=== PATIENT | female | born 1940 | race Two or more races ===

== ENCOUNTER 2016-11-22 12:09 | Inpatient (IN) | payer OTHER, BC ==
[~2016-11-22] VITALS: Ht 152.4 cm; Wt 96.2 kg
[2016-11-22] MEDS ORDERED: METOPROLOL TART25 MG PO (13:52)
[2016-11-22] MEDS ORDERED: ATORVASTATIN CA40 MG PO ×2 (13:52→19:13)
[2016-11-22] MEDS ORDERED: HYDROCHLOROTH12.5 M3 PO (13:53)
[2016-11-22] MEDS ORDERED: REPAGLINIDE2 MG PO (13:53)
[2016-11-22] MEDS ORDERED: JANUMET XR 50-1 EACH PO (13:59)
[2016-11-22] MEDS ORDERED: TERBINAFINE HC250 MG PO (13:59)
[2016-11-22] MEDS ORDERED: ELIQUIS5 MG PO (13:59)
[2016-11-22] MEDS ORDERED: JARDIANCE25 MG PO (14:00)
[2016-11-22] MEDS ORDERED: GABAPENTIN300 MG PO (14:00)
[2016-11-22 14:46] LABS: HEMATOCRIT 45.5 % (36.0-46.0); MCH 26.5 PG (29.0-34.0); MCHC 31.4 G/DL (30.0-36.0); MCV 84.3 FL (83-99); RBC DIS.WIDTH-CV 16.5 % (11.8-14.6); RBC DIS.WIDTH-SD 50.8 % (39-53); WHITE BLOOD COUNT 8.2 K/uL (4.1-10.2)
[2016-11-22 14:57] LABS: CHLORIDE 93 mEq/L (99-109); POTASSIUM 4.9 mEq/L (3.7-5.4); SODIUM 134 mEq/L (136-147)
[2016-11-22 15:00] LABS: ANION GAP 13 MEQ/L (2-14)
[2016-11-22 15:01] LABS: TOTAL BILIRUBIN 0.7 mg/dL (0.0-1.0)
[2016-11-22 15:03] LABS: ALKALINE PHOSPHATASE 88 IU/L (3-129); GFR ESTIMATE (CALCULATED) 29 mL/min/
[2016-11-22 15:04] LABS: UREA NITROGEN (BUN) 27 mg/dL (9-23)
[2016-11-22 15:07] LABS: TROP-I INTERPRETATION NEGATIVE; TROPONIN-I 0.02 ng/mL (0.0-0.30)
[2016-11-22 15:07] LABS: ADD MIUA? NO; BILIRUBIN NEGATIVE; BLOOD NEGATIVE; COLOR STRAW ((YELLOW)); GLUCOSE (STRIP) >=500; KETONES NEGATIVE; LEUKOCYTES NEGATIVE; NITRITE NEGATIVE; PROTEIN (STRIP) NEGATIVE; SPECIFIC GRAVITY 1.025 (1.000-1.030); UCUL ADDED? NO; UROBILINOGEN 0.2 MG/DL (0.2-1.0)
[2016-11-22 15:13] LABS: GLUCOSE 613 mg/dL (70-99)
[2016-11-22 16:06] LABS: ABS NEUTROPHIL COUNT 6.3; ANISOCYTOSIS 1+; ATYPICAL LYMPHOCYTE 0.9 %; BAND NEUTROPHILS 17.4 % (0-8.0); EOSINOPHIL ABS CT 0; INSTRUMENT ABS NEUTROPHIL CT 6.2 K/uL; LYMPHOCYTES 14.8 % (15.0-45.0); MACROCYTES 1+; MICROCYTOSIS 1+; PLAT.SUFFICIENCY ADEQUATE; PLATELET CLUMPS PRESENT - PLATELET COUNT APPEARS ADQ.; PLATELET COUNT UNABLE TO REPORT K/uL (156-360); SEG.NEUTROPHILS 59.1 % (46.0-76.0)
[2016-11-22 17:32] LABS: POINT-OF-CARE METER ID UU13113702
[2016-11-22 19:05] LABS: POINT-OF-CARE METER ID UU13113702
[2016-11-22] MEDS ORDERED: ALTACE10 MG PO (19:20)
[2016-11-22 19:41] LABS: URIC ACID 6.9 mg/dL (3.1-9.2)
[2016-11-22 20:18] LABS: Estimated Average Glucose 286 mg/dL (70-123); HEMOGLOBIN A1c (GLYCOHEMOGLOB) 11.6 % HGB (Below 5.7)
[2016-11-22 21:32] VITALS: BP 132/71
[2016-11-23] VITALS (7 sets, daily range): BP systolic 94–182; BP diastolic 50–88
[2016-11-23 05:19] LABS: MCH 26.3 PG (29.0-34.0); MCV 84.9 FL (83-99); MEAN PLAT.VOLUME 10.6 uM^3 (9.5-12.4); PLATELET COUNT 232 K/uL (156-360); RBC DIS.WIDTH-CV 16.3 % (11.8-14.6); RBC DIS.WIDTH-SD 50.8 % (39-53); RED BLOOD COUNT 4.71 M/uL (3.80-5.20); WHITE BLOOD COUNT 7.1 K/uL (4.1-10.2)
[2016-11-23 05:51] LABS: ANION GAP 8 MEQ/L (2-14); CHLORIDE 102 MEQ/L (99-109); GFR ESTIMATE (CALCULATED) 52 mL/min/; SAMPLE HEMOLYSIS CHECK 0; SAMPLE ICTERIC CHECK 0; SAMPLE LIPEMIA CHECK 0; SODIUM 140 MEQ/L (136-147); UREA NITROGEN (BUN) 22 mg/dL (9-23)
[2016-11-23 06:10] LABS: GLUCOSE 192 mg/dL (70-99)
[2016-11-23 12:25] LABS: POINT-OF-CARE METER ID UU14174225
[2016-11-23 12:43] LABS: TROP-I INTERPRETATION NEGATIVE; TROPONIN-I 0.02 ng/mL (0.0-0.30)
[2016-11-23 17:05] LABS: POINT-OF-CARE METER ID UU14174225
[2016-11-23 20:27] LABS: POINT-OF-CARE METER ID UU14174225
[2016-11-24] VITALS (22 sets, daily range): BP systolic 74–183; BP diastolic 37–81
[2016-11-24 08:50] LABS: BASE EXCESS -14.1 mEq/L (-3 to +3); BICARBONATE 13.4 mEq/L (22-26); CARBOXY HGB 2.3 % (0-5); COMMENTS - BLOOD GASES +C; DEVICE NC; O2 FLOW 3 L/MIN; PCO2 36 mm Hg (35-45); PO2 80 mm Hg (80-100); SITE RR +A
[2016-11-24 08:51] LABS: TOTAL RESP RATE 16 resp/min; pH 7.18 (7.35-7.45)
[2016-11-24 09:12] LABS: HEMATOCRIT 45.8 % (36.0-46.0); MCH 26.4 PG (29.0-34.0); MCHC 29.7 G/DL (30.0-36.0); MCV 88.8 FL (83-99); NRBC (%) 0.2 /100 WBC (0-0); RBC DIS.WIDTH-CV 17.4 % (11.8-14.6); RBC DIS.WIDTH-SD 57.4 % (39-53); RED BLOOD COUNT 5.16 M/uL (3.80-5.20)
[2016-11-24 09:21] LABS: SODIUM 142 mEq/L (136-147)
[2016-11-24 09:22] LABS: WHITE BLOOD COUNT 10.9 K/uL (4.1-10.2)
[2016-11-24 09:23] LABS: CHLORIDE 110 mEq/L (99-109); POTASSIUM 6.1 mEq/L (3.7-5.4)
[2016-11-24 09:24] LABS: ANION GAP 21 MEQ/L (2-14)
[2016-11-24 09:26] LABS: GLUCOSE 76 mg/dL (70-99)
[2016-11-24 09:27] LABS: ALKALINE PHOSPHATASE 267 IU/L (3-129); GFR ESTIMATE (CALCULATED) 27 mL/min/
[2016-11-24 09:28] LABS: UREA NITROGEN (BUN) 27 mg/dL (9-23)
[2016-11-24 09:29] LABS: TROP-I INTERPRETATION NEGATIVE; TROPONIN-I 0.17 ng/mL (0.0-0.30)
[2016-11-24 11:16] LABS: MEAN PLAT.VOLUME 11.4 uM^3 (9.5-12.4)
[2016-11-24 11:34] LABS: PLAT.SUFFICIENCY DECREASED; PLATELET CLUMPS PRESENT - PLATELET COUNT APPEARS ADQ.
[2016-11-24 11:56] LABS: METH RESISTANT S AUREUS PCR NEGATIVE (NEGATIVE)
[2016-11-24 12:31] LABS: PROBE CHECK PASS; SPECIMEN PROCESSING CONTROL PASS
[2016-11-24 13:21] LABS: CHLORIDE 110 mEq/L (99-109); SODIUM 142 mEq/L (136-147)
[2016-11-24 13:23] LABS: HEMATOCRIT 44.7 % (36.0-46.0); MCH 26.9 PG (29.0-34.0); MCHC 30.2 G/DL (30.0-36.0); RBC DIS.WIDTH-CV 17.5 % (11.8-14.6); RBC DIS.WIDTH-SD 57.9 % (39-53); RED BLOOD COUNT 5.02 M/uL (3.80-5.20); WHITE BLOOD COUNT 12.2 K/uL (4.1-10.2)
[2016-11-24 13:25] LABS: ANION GAP 18 MEQ/L (2-14); PROTHROMBIN TIME 20.8 (9.2-11.2); PTT 37.4 (25-32); TOTAL BILIRUBIN 1.6 mg/dL (0.0-1.0)
[2016-11-24 13:27] LABS: ALKALINE PHOSPHATASE 245 IU/L (3-129); GFR ESTIMATE (CALCULATED) 29 mL/min/
[2016-11-24 13:28] LABS: UREA NITROGEN (BUN) 28 mg/dL (9-23)
[2016-11-24 13:29] LABS: DIRECT BILIRUBIN 1.2 mg/dL (0.0-0.3)
[2016-11-24 13:47] LABS: GLUCOSE 193 mg/dL (70-99); POTASSIUM 4.3 mEq/L (3.7-5.4)
[2016-11-24 15:47] LABS: ABS NEUTROPHIL COUNT 9.6; ANISOCYTOSIS 1+; BAND NEUTROPHILS 31.3 % (0-8.0); EOSINOPHIL ABS CT 0; HEMATOLOGY COMMENT 1 SN; INSTRUMENT ABS NEUTROPHIL CT 10.1 K/uL; LYMPHOCYTES 4.3 % (15.0-45.0); MEAN PLAT.VOLUME 11.3 uM^3 (9.5-12.4); METAMYELOCYTES 2.6 %; MYELOCYTES 3.5 %; PLAT.SUFFICIENCY DECREASED; POIKILOCYTOSIS 3+; TOXIC GRANULATION 1+
[2016-11-24 15:57] LABS: PLATELET COUNT 89 K/uL (156-360)
[2016-11-24 17:44] LABS: ADD MIUA? YES; BILIRUBIN NEGATIVE; BLOOD MODERATE; COLOR AMBER ((YELLOW)); GLUCOSE (STRIP) >=500; KETONES NEGATIVE; LEUKOCYTES NEGATIVE; NITRITE NEGATIVE; PROTEIN (STRIP) 100; SPECIFIC GRAVITY 1.018 (1.000-1.030)
[2016-11-24 18:30] LABS: BACTERIA 1+ /HPF; EPITHELIAL CELLS RARE /HPF; HYALINE CASTS 0-5 /LPF; MUCUS TRACE /LPF; UCUL ADDED? NO
[2016-11-24 18:49] LABS: INTER. NORMALIZED RATIO 2.1; PROTHROMBIN TIME 21.4 (9.2-11.2); PTT 35.9 (25-32)
[2016-11-24 18:57] LABS: TROP-I INTERPRETATION POSITIVE; TROPONIN-I 1.09 ng/mL (0.0-0.30)
[2016-11-24 19:23] LABS: GLOBULINS 2.8 G/DL (2.3-3.5)
[2016-11-25] VITALS (36 sets, daily range): BP systolic 77–178; BP diastolic 40–102
[2016-11-25 00:04] LABS: POINT-OF-CARE METER ID UU13113803
[2016-11-25 06:03] LABS: POINT-OF-CARE METER ID UU13113803
[2016-11-25 07:11] LABS: HEMATOCRIT 38.5 % (36.0-46.0); MCH 27.3 PG (29.0-34.0); MCHC 31.2 G/DL (30.0-36.0); MCV 87.7 FL (83-99); NRBC (%) 0.4 /100 WBC (0-0); RBC DIS.WIDTH-CV 17.2 % (11.8-14.6); RBC DIS.WIDTH-SD 55.9 % (39-53); RED BLOOD COUNT 4.39 M/uL (3.80-5.20)
[2016-11-25 07:12] LABS: WHITE BLOOD COUNT 6.7 K/uL (4.1-10.2)
[2016-11-25 07:37] LABS: CHLORIDE 109 MEQ/L (99-109); GFR ESTIMATE (CALCULATED) 21 mL/min/; GLUCOSE 258 mg/dL (70-99); SODIUM 140 MEQ/L (136-147); TOTAL BILIRUBIN 0.9 MG/DL (0.0-1.0); UREA NITROGEN (BUN) 40 mg/dL (9-23)
[2016-11-25 07:38] LABS: ALKALINE PHOSPHATASE 242 IU/L (3-129); DIRECT BILIRUBIN 0.4 mg/dL (0.0-0.3)
[2016-11-25 07:42] LABS: ANION GAP 15 MEQ/L (2-14); SAMPLE HEMOLYSIS CHECK 0; SAMPLE ICTERIC CHECK 0; SAMPLE LIPEMIA CHECK 0
[2016-11-25 07:45] LABS: ABS NEUTROPHIL COUNT 5.3; ANISOCYTOSIS 1+; ATYPICAL LYMPHOCYTE 0.9 %; BAND NEUTROPHILS 39.3 % (0-8.0); BASOPHILS 0.9 %; BURR CELLS 2+; EOSINOPHIL ABS CT 0; IMM.PLATELET FRACTION 11.1 (1-7); INSTRUMENT ABS NEUTROPHIL CT 5.6 K/uL; LYMPHOCYTES 11.6 % (15.0-45.0); MACROCYTES 1+; METAMYELOCYTES 1.8 %; NUCLEATED RBC'S 0.9; OVALOCYTES 1+; PLAT.SUFFICIENCY VERY DECREASED; PLATELET COUNT 22 K/uL (156-360); POIKILOCYTOSIS 2+; SEG.NEUTROPHILS 40.2 % (46.0-76.0); SMUDGE CELLS 0.9
[2016-11-25 10:26] LABS: HPCA INDEX 0.11
[2016-11-25 10:27] LABS: ANTI-HEPATITIS A VIRUS (IGM) Nonreactive; ANTI-HEPATITIS B CORE (IGM) Nonreactive; HAV INDEX 0.11; HBC IgM INDEX 0.05
[2016-11-25 12:23] LABS: POINT-OF-CARE METER ID UU13113778
[2016-11-25 12:23] LABS: POINT-OF-CARE METER ID UU14100415
[2016-11-25 12:23] LABS: POINT-OF-CARE METER ID UU13113702
[2016-11-25 13:48] LABS: ALBUMIN 2.79 G/DL (3.6-4.9); ALPHA-1 PERCENT 5.2 %; ALPHA-2 GLOBULIN 0.98 G/DL (0.45-0.85); ALPHA-2 PERCENT 17.2 %; BETA PERCENT 14.5 %; GAMMA PERCENT 14.1 %
[2016-11-25 18:09] LABS: HEMATOCRIT 35.5 % (36.0-46.0); MCH 26.9 PG (29.0-34.0); MCHC 31.3 G/DL (30.0-36.0); NRBC (%) 1.2 /100 WBC (0-0); RBC DIS.WIDTH-CV 17.2 % (11.8-14.6); RBC DIS.WIDTH-SD 54.8 % (39-53); RED BLOOD COUNT 4.13 M/uL (3.80-5.20); WHITE BLOOD COUNT 6.5 K/uL (4.1-10.2)
[2016-11-25 18:15] LABS: POINT-OF-CARE METER ID UU14174217
[2016-11-25 20:00] LABS: IMM.PLATELET FRACTION 11.2 (1-7); PLAT.SUFFICIENCY VERY DECREASED; PLATELET COUNT 16 K/uL (156-360)
[2016-11-25 23:56] LABS: POINT-OF-CARE METER ID UU14174217
[2016-11-26] VITALS (30 sets, daily range): BP systolic 39–222; BP diastolic 23–133
[2016-11-26 05:51] LABS: POINT-OF-CARE METER ID UU13113803
[2016-11-26 07:25] LABS: INTER. NORMALIZED RATIO 1.9; PTT 34.2 (25-32)
[2016-11-26 08:00] LABS: HEMATOCRIT 31.4 % (36.0-46.0); MCH 27.1 PG (29.0-34.0); MCHC 31.5 G/DL (30.0-36.0); NRBC (%) 1.7 /100 WBC (0-0); RBC DIS.WIDTH-CV 17.2 % (11.8-14.6); RBC DIS.WIDTH-SD 54.8 % (39-53); RED BLOOD COUNT 3.65 M/uL (3.80-5.20); WHITE BLOOD COUNT 5.3 K/uL (4.1-10.2)
[2016-11-26 08:02] LABS: ALKALINE PHOSPHATASE 190 IU/L (3-129); ANION GAP 14 MEQ/L (2-14); CHLORIDE 107 MEQ/L (99-109); DIRECT BILIRUBIN 0.6 mg/dL (0.0-0.3); GFR ESTIMATE (CALCULATED) 18 mL/min/; GLUCOSE 223 mg/dL (70-99); MAGNESIUM 1.6 mg/dl (1.3-2.7); POTASSIUM 3.7 MEQ/L (3.7-5.4); SAMPLE HEMOLYSIS CHECK 0; SAMPLE ICTERIC CHECK 0; SAMPLE LIPEMIA CHECK 0; SODIUM 140 MEQ/L (136-147); TOTAL BILIRUBIN 1.2 MG/DL (0.0-1.0); UREA NITROGEN (BUN) 45 mg/dL (9-23)
[2016-11-26 09:01] LABS: ABS NEUTROPHIL COUNT 4.5; ANISOCYTOSIS 1+; BURR CELLS 1+; EOSINOPHIL ABS CT 0; HYPOCHROMASIA 1+; IMM.PLATELET FRACTION 7.9 (1-7); INSTRUMENT ABS NEUTROPHIL CT 4.2 K/uL; MEAN PLAT.VOLUME 10.1 uM^3 (9.5-12.4)
[2016-11-26 09:09] LABS: PLAT.SUFFICIENCY VERY DECREASED; PLATELET COUNT 28 K/uL (156-360)
[2016-11-26 12:20] LABS: POINT-OF-CARE METER ID UU13113803
[2016-11-26 13:35] LABS: C DIFF TOXIN NEGATIVE (NEGATIVE)
[2016-11-26 13:38] LABS: PROBE CHECK PASS; SPECIMEN PROCESSING CONTROL PASS
[2016-11-26 14:51] LABS: BASE EXCESS -10.1 mEq/L (-3 to +3); CARBOXY HGB 1.4 % (0-5); METHEMOGLOBIN 1.2 % (0-1.5); PCO2 40 mm Hg (35-45); PO2 81 mm Hg (80-100)
[2016-11-26 14:52] LABS: BICARBONATE 16.8 mEq/L (22-26); COMMENTS - BLOOD GASES A+C+; DEVICE NC; O2 FLOW 2 L/MIN; SITE LR; TOTAL RESP RATE 28 resp/min
[2016-11-26 14:55] LABS: pH 7.23 (7.35-7.45)
[2016-11-26 17:33] LABS: HEMATOCRIT 31.8 % (36.0-46.0); MCH 26.9 PG (29.0-34.0); MCHC 31.4 G/DL (30.0-36.0); MCV 85.5 FL (83-99); MEAN PLAT.VOLUME 9.7 uM^3 (9.5-12.4); NRBC (%) 2.7 /100 WBC (0-0); RBC DIS.WIDTH-CV 17.5 % (11.8-14.6); RBC DIS.WIDTH-SD 55.2 % (39-53); RED BLOOD COUNT 3.72 M/uL (3.80-5.20)
[2016-11-26 17:38] LABS: INTER. NORMALIZED RATIO 2.2; PROTHROMBIN TIME 23.1 (9.2-11.2); PTT 30.4 (25-32)
[2016-11-26 17:41] LABS: CHLORIDE 109 mEq/L (99-109); POTASSIUM 3.7 mEq/L (3.7-5.4)
[2016-11-26 17:44] LABS: GLUCOSE 239 mg/dL (70-99)
[2016-11-26 17:45] LABS: BASE EXCESS -8.7 mEq/L (-3 to +3); CARBOXY HGB 1.3 % (0-5)
[2016-11-26 17:45] LABS: ANION GAP 20 MEQ/L (2-14)
[2016-11-26 17:46] LABS: TOTAL BILIRUBIN 1.3 mg/dL (0.0-1.0)
[2016-11-26 17:47] LABS: ALKALINE PHOSPHATASE 218 IU/L (3-129); GFR ESTIMATE (CALCULATED) 16 mL/min/; PLATELET COUNT 59 K/uL (156-360); SODIUM 152 mEq/L (136-147); WHITE BLOOD COUNT 9.3 K/uL (4.1-10.2)
[2016-11-26 17:48] LABS: UREA NITROGEN (BUN) 45 mg/dL (9-23)
[2016-11-26 17:52] LABS: COMMENTS - BLOOD GASES C+; DEVICE 980; FI02 100 %; MECHANICAL RATE 20 resp/min; MODE A/C; PCO2 76 mm Hg (35-45); PO2 42 mm Hg (80-100); SITE ALINE; TOTAL RESP RATE 22 resp/min
[2016-11-26 17:53] LABS: PEEP 5 CM/H20; TIDAL VOLUME 380 ML; pH 7.07 (7.35-7.45)
[2016-11-26 18:33] LABS: FIBRINOGEN 338 MG/DL (160-450)
[2016-11-26 18:37] LABS: ABS NEUTROPHIL COUNT 7.5; ANISOCYTOSIS 2+; ATYPICAL LYMPHOCYTE 0.9 %; BASOPHILS 0.8 %; BURR CELLS 1+; EOSINOPHIL ABS CT 0; HEMATOLOGY COMMENT 1 SN; LYMPHOCYTES 10.3 % (15.0-45.0); METAMYELOCYTES 4.3 %; OVALOCYTES 1+; PLAT.SUFFICIENCY DECREASED; POIKILOCYTOSIS 2+
[2016-11-26 18:41] LABS: SEG.NEUTROPHILS 61.3 % (46.0-76.0)
[2016-11-26 19:21] LABS: BASE EXCESS -14.2 mEq/L (-3 to +3); CARBOXY HGB 0.9 % (0-5); COMMENTS - BLOOD GASES C+; DEVICE VENTILATOR; FI02 100 %; INSPIRATION TIME 0.98 seconds; MECHANICAL RATE 24 resp/min; METHEMOGLOBIN 1.4 % (0-1.5); MODE AC; PCO2 42 mm Hg (35-45); PO2 272 mm Hg (80-100); TOTAL RESP RATE 27 resp/min
[2016-11-26 19:22] LABS: PEEP 5 CM/H20; PRESSURE CONTROL VENTILATION 25 CM H20; pH 7.13 (7.35-7.45)
[2016-11-26 19:41] LABS: POINT-OF-CARE METER ID UU13113803; POINT-OF-CARE USER ID 609231305
[2016-11-26 22:34] LABS: ANION GAP 26 MEQ/L (2-14); CHLORIDE 108 MEQ/L (99-109); GFR ESTIMATE (CALCULATED) 17 mL/min/; GLUCOSE 211 mg/dL (70-99); POTASSIUM 3.7 MEQ/L (3.7-5.4); SAMPLE HEMOLYSIS CHECK 0; SAMPLE ICTERIC CHECK 0; SAMPLE LIPEMIA CHECK 0; SODIUM 147 MEQ/L (136-147); UREA NITROGEN (BUN) 44 mg/dL (9-23)
[2016-11-26 23:52] LABS: POINT-OF-CARE METER ID UU13113803
[2016-11-27 03:14] LABS: HEMATOCRIT 29.9 % (36.0-46.0); MCH 26.6 PG (29.0-34.0); MCHC 31.1 G/DL (30.0-36.0); MCV 85.7 FL (83-99); NRBC (%) 3.3 /100 WBC (0-0); RBC DIS.WIDTH-SD 56.6 % (39-53); RED BLOOD COUNT 3.49 M/uL (3.80-5.20); WHITE BLOOD COUNT 8.6 K/uL (4.1-10.2)
[2016-11-27 03:23] LABS: CHLORIDE 111 mEq/L (99-109); MAGNESIUM 1.8 mg/dL (1.3-2.7); POTASSIUM 4.2 mEq/L (3.7-5.4); SODIUM 145 mEq/L (136-147)
[2016-11-27 03:26] LABS: GLUCOSE 93 mg/dL (70-99)
[2016-11-27 03:29] LABS: GFR ESTIMATE (CALCULATED) 19 mL/min/
[2016-11-27 03:30] LABS: UREA NITROGEN (BUN) 37 mg/dL (9-23)
[2016-11-27 05:09] LABS: VANCOMYCIN, TROUGH 10.2 MCG/ML (10-20)
[2016-11-27 05:42] LABS: ABS NEUTROPHIL COUNT 7.3; ANISOCYTOSIS 1+; BURR CELLS 1+; EOSINOPHIL ABS CT 0; IMM.PLATELET FRACTION 7.6 (1-7); INSTRUMENT ABS NEUTROPHIL CT 6.7 K/uL; LYMPHOCYTES 11.5 % (15.0-45.0); MEAN PLAT.VOLUME 10.9 uM^3 (9.5-12.4); MICROCYTOSIS 1+; NUCLEATED RBC'S 6.2; OVALOCYTES 1+; PLAT.SUFFICIENCY DECREASED; PLATELET COUNT 49 K/uL (156-360); POIKILOCYTOSIS 2+
[2016-11-27 10:07] LABS: CHLORIDE 110 mEq/L (99-109); POTASSIUM 4.2 mEq/L (3.7-5.4); SODIUM 146 mEq/L (136-147)
[2016-11-27 10:11] LABS: ANION GAP 25 MEQ/L (2-14)
[2016-11-27 10:13] LABS: GFR ESTIMATE (CALCULATED) 16 mL/min/
[2016-11-27 10:14] LABS: UREA NITROGEN (BUN) 39 mg/dL (9-23)
[2016-11-27 10:18] LABS: GLUCOSE 140 mg/dL (70-99)
[2016-11-27 13:03] LABS: MAGNESIUM 1.8 mg/dL (1.3-2.7)
[2016-11-27 13:06] LABS: HEMATOCRIT 24.1 % (36.0-46.0); MCH 26.6 PG (29.0-34.0); MCHC 31.5 G/DL (30.0-36.0); MCV 84.3 FL (83-99); NRBC (%) 2.2 /100 WBC (0-0); RBC DIS.WIDTH-CV 17.8 % (11.8-14.6); RBC DIS.WIDTH-SD 55.7 % (39-53); RED BLOOD COUNT 2.86 M/uL (3.80-5.20)
[2016-11-27 13:58] LABS: ANISOCYTOSIS 1+; BURR CELLS 1+; EOSINOPHIL (%) 0 % (0-5); IMM.PLATELET FRACTION 7.2 (1-7); IMMATURE GRANULOCYTE (%) 2.5 % (0.0-0.7); IMMATURE GRANULOCYTE COUNT 0.2 K/uL; INSTRUMENT ABS NEUTROPHIL CT 5.7 K/uL; LYMPHOCYTE COUNT 1.1 K/uL (1.0-2.8); NEUTROPHIL (%) 71.4 % (45-76); NEUTROPHIL COUNT 5.7 K/uL (1.8-6.4); OVALOCYTES 1+; PLAT.SUFFICIENCY DECREASED; PLATELET COUNT 36 K/uL (156-360); POIKILOCYTOSIS 1+; TOX.VACUOLIZATION 1+; TOXIC GRANULATION 1+
[2016-11-27 14:30] LABS: CHLORIDE 110 mEq/L (99-109); SODIUM 145 mEq/L (136-147)
[2016-11-27 14:32] LABS: GLUCOSE 153 mg/dL (70-99)
[2016-11-27 14:33] LABS: ANION GAP 21 MEQ/L (2-14)
[2016-11-27 14:36] LABS: GFR ESTIMATE (CALCULATED) 19 mL/min/
[2016-11-27 14:37] LABS: UREA NITROGEN (BUN) 33 mg/dL (9-23)
[2016-11-27 20:15] LABS: EOSINOPHIL (%) 0 % (0-5); HEMATOCRIT 29.2 % (36.0-46.0); IMMATURE GRANULOCYTE (%) 2.3 % (0.0-0.7); IMMATURE GRANULOCYTE COUNT 0.2 K/uL; INSTRUMENT ABS NEUTROPHIL CT 6.5 K/uL; LYMPHOCYTE COUNT 1.2 K/uL (1.0-2.8); MCH 27.3 PG (29.0-34.0); MCHC 32.5 G/DL (30.0-36.0); MCV 83.9 FL (83-99); MONOCYTE (%) 9.2 % (3-12); MONOCYTE COUNT 0.8 K/uL (0-0.8); NEUTROPHIL (%) 74.5 % (45-76); NEUTROPHIL COUNT 6.5 K/uL (1.8-6.4); NRBC (%) 4.3 /100 WBC (0-0); RBC DIS.WIDTH-CV 17.4 % (11.8-14.6); RBC DIS.WIDTH-SD 53.1 % (39-53); WHITE BLOOD COUNT 8.7 K/uL (4.1-10.2)
[2016-11-27 20:18] LABS: CHLORIDE 108 mEq/L (99-109); POTASSIUM 4.4 mEq/L (3.7-5.4); SODIUM 142 mEq/L (136-147)
[2016-11-27 20:19] LABS: RED BLOOD COUNT 3.48 M/uL (3.80-5.20)
[2016-11-27 20:20] LABS: GLUCOSE 137 mg/dL (70-99)
[2016-11-27 20:22] LABS: ANION GAP 17 MEQ/L (2-14); MAGNESIUM 2.2 mg/dL (1.3-2.7)
[2016-11-27 20:24] LABS: GFR ESTIMATE (CALCULATED) 33 mL/min/
[2016-11-27 20:25] LABS: UREA NITROGEN (BUN) 22 mg/dL (9-23)
[2016-11-27 20:47] LABS: IMM.PLATELET FRACTION 9.3 (1-7); PLATELET COUNT 42 K/uL (156-360)
[2016-11-27 21:00] VITALS: BP 63/23
[2016-11-27 21:32] LABS: ABS NEUTROPHIL COUNT 7.8; ANISOCYTOSIS 1+; BAND NEUTROPHILS 5.5 % (0-8.0); EOSINOPHIL ABS CT 0; GIANT PLATELETS 1+; LYMPHOCYTES 4.5 % (15.0-45.0); MACROCYTES 1+; METAMYELOCYTES 0.9 %; MICROCYTOSIS 1+; NUCLEATED RBC'S 2.7; POIKILOCYTOSIS 1+; SEG.NEUTROPHILS 84.6 % (46.0-76.0); TOX.VACUOLIZATION 1+; TOXIC GRANULATION 1+
[2016-11-27 21:33] LABS: PLAT.SUFFICIENCY VERY DECREASED
[2016-11-27 21:51] LABS: Heparin Induced Plt Ab Negative (Negative)
[2016-11-28] VITALS (8 sets, daily range): BP systolic 54–123; BP diastolic 32–53
[2016-11-28 03:36] LABS: CHLORIDE 106 mEq/L (99-109); POTASSIUM 4.3 mEq/L (3.7-5.4); SODIUM 141 mEq/L (136-147)
[2016-11-28 03:38] LABS: GLUCOSE 147 mg/dL (70-99)
[2016-11-28 03:39] LABS: ANION GAP 17 MEQ/L (2-14)
[2016-11-28 03:42] LABS: GFR ESTIMATE (CALCULATED) 39 mL/min/
[2016-11-28 03:43] LABS: UREA NITROGEN (BUN) 18 mg/dL (9-23)
[2016-11-28 05:08] LABS: ABS NEUTROPHIL COUNT 6.8; ANISOCYTOSIS 1+; BURR CELLS 1+; EOSINOPHIL ABS CT 0; HEMATOCRIT 28.4 % (36.0-46.0); LYMPHOCYTES 10.7 % (15.0-45.0); MCHC 32.4 G/DL (30.0-36.0); MCV 83.3 FL (83-99); MICROCYTOSIS 1+; NRBC (%) 4.6 /100 WBC (0-0); NUCLEATED RBC'S 8.9; OVALOCYTES 1+; PLAT.SUFFICIENCY DECREASED; POIKILOCYTOSIS 2+; RBC DIS.WIDTH-CV 17.5 % (11.8-14.6); RBC DIS.WIDTH-SD 52.9 % (39-53); RED BLOOD COUNT 3.41 M/uL (3.80-5.20); SEG.NEUTROPHILS 87.5 % (46.0-76.0); WHITE BLOOD COUNT 7.8 K/uL (4.1-10.2)
[2016-11-28 05:10] LABS: IMM.PLATELET FRACTION 10.2 (1-7); PLATELET COUNT 36 K/uL (156-360)
[2016-11-28 07:55] LABS: UFH SRA Result Negative (Negative)
[2016-11-28 09:55] LABS: CHLORIDE 103 mEq/L (99-109); POTASSIUM 3.8 mEq/L (3.7-5.4); SODIUM 140 mEq/L (136-147)
[2016-11-28 09:57] LABS: GLUCOSE 125 mg/dL (70-99)
[2016-11-28 09:58] LABS: ANION GAP 16 MEQ/L (2-14)
[2016-11-28 10:01] LABS: GFR ESTIMATE (CALCULATED) > 59 mL/min/
[2016-11-28 10:02] LABS: UREA NITROGEN (BUN) 12 mg/dL (9-23)
[2016-11-28 12:27] LABS: ALKALINE PHOSPHATASE 237 IU/L (3-129)
[2016-11-28 12:35] LABS: DIRECT BILIRUBIN 2.7 mg/dL (0.0-0.3); TOTAL BILIRUBIN 4.5 mg/dL (0.0-1.0)
[2016-11-28 14:58] LABS: HEMATOCRIT 28.1 % (36.0-46.0); MCH 27.2 PG (29.0-34.0); MCHC 33.5 G/DL (30.0-36.0); MCV 81.2 FL (83-99); NRBC (%) 5.5 /100 WBC (0-0); RBC DIS.WIDTH-CV 17.1 % (11.8-14.6); RBC DIS.WIDTH-SD 50.2 % (39-53); RED BLOOD COUNT 3.46 M/uL (3.80-5.20); WHITE BLOOD COUNT 5.8 K/uL (4.1-10.2)
[2016-11-28 15:15] LABS: CHLORIDE 108 mEq/L (99-109); POTASSIUM 3.8 mEq/L (3.7-5.4); SODIUM 140 mEq/L (136-147)
[2016-11-28 15:17] LABS: GLUCOSE 95 mg/dL (70-99)
[2016-11-28 15:19] LABS: ANION GAP 14 MEQ/L (2-14)
[2016-11-28 15:21] LABS: GFR ESTIMATE (CALCULATED) > 59 mL/min/
[2016-11-28 15:22] LABS: UREA NITROGEN (BUN) 11 mg/dL (9-23)
[2016-11-28 15:25] LABS: PLATELET COUNT 38 K/uL (156-360)
[2016-11-28 17:41] LABS: EOSINOPHIL (%) 0 % (0-5); IMMATURE GRANULOCYTE (%) 1.9 % (0.0-0.7); IMMATURE GRANULOCYTE COUNT 0.1 K/uL; INSTRUMENT ABS NEUTROPHIL CT 4.6 K/uL; LYMPHOCYTE COUNT 0.7 K/uL (1.0-2.8); MONOCYTE (%) 5.2 % (3-12); MONOCYTE COUNT 0.3 K/uL (0-0.8); NEUTROPHIL (%) 80.2 % (45-76); NEUTROPHIL COUNT 4.6 K/uL (1.8-6.4)
[2016-11-28 20:23] LABS: EOSINOPHIL (%) 0 % (0-5); HEMATOCRIT 27.1 % (36.0-46.0); IMMATURE GRANULOCYTE (%) 2.2 % (0.0-0.7); IMMATURE GRANULOCYTE COUNT 0.1 K/uL; INSTRUMENT ABS NEUTROPHIL CT 4.5 K/uL; LYMPHOCYTE COUNT 0.6 K/uL (1.0-2.8); MCHC 33.2 G/DL (30.0-36.0); MCV 81.4 FL (83-99); MONOCYTE (%) 6.6 % (3-12); MONOCYTE COUNT 0.4 K/uL (0-0.8); NEUTROPHIL (%) 80.2 % (45-76); NEUTROPHIL COUNT 4.5 K/uL (1.8-6.4); NRBC (%) 7.5 /100 WBC (0-0); RBC DIS.WIDTH-CV 16.8 % (11.8-14.6); RBC DIS.WIDTH-SD 49.8 % (39-53); RED BLOOD COUNT 3.33 M/uL (3.80-5.20); WHITE BLOOD COUNT 5.6 K/uL (4.1-10.2)
[2016-11-28 20:33] LABS: CHLORIDE 108 mEq/L (99-109); POTASSIUM 3.9 mEq/L (3.7-5.4); SODIUM 142 mEq/L (136-147)
[2016-11-28 20:35] LABS: GLUCOSE 81 mg/dL (70-99)
[2016-11-28 20:36] LABS: ANION GAP 16 MEQ/L (2-14)
[2016-11-28 20:38] LABS: GFR ESTIMATE (CALCULATED) > 59 mL/min/
[2016-11-28 20:39] LABS: UREA NITROGEN (BUN) 9 mg/dL (9-23)
[2016-11-28 21:58] LABS: ABS NEUTROPHIL COUNT 5.1; ANISOCYTOSIS 1+; BAND NEUTROPHILS 0.9 % (0-8.0); EOSINOPHIL ABS CT 0; HYPOCHROMASIA 3+; IMM.PLATELET FRACTION 12.2 (1-7); LYMPHOCYTES 3.6 % (15.0-45.0); MEAN PLAT.VOLUME 9.9 uM^3 (9.5-12.4); MICROCYTOSIS 1+; NUCLEATED RBC'S 16.4; PLAT.SUFFICIENCY DECREASED; PLATELET COUNT 35 K/uL (156-360); POIKILOCYTOSIS 1+; SEG.NEUTROPHILS 90.9 % (46.0-76.0); SMUDGE CELLS 20.9; TEAR DROP CELLS 1+
[2016-11-28 23:02] LABS: BASE EXCESS -6.1 mEq/L (-3 to +3); CARBOXY HGB 1.3 % (0-5); METHEMOGLOBIN 1.2 % (0-1.5)
[2016-11-28 23:03] LABS: BICARBONATE 18.5 mEq/L (22-26); COMMENTS - BLOOD GASES A+; DEVICE 980; FI02 30 %; MECHANICAL RATE 24 resp/min; MODE ACPC; PCO2 32 mm Hg (35-45); PEEP 5 CM/H20; PO2 66 mm Hg (80-100); PRESSURE CONTROL VENTILATION 25 CM H20; TOTAL RESP RATE 31 resp/min; pH 7.37 (7.35-7.45)
[2016-11-29] VITALS (11 sets, daily range): BP systolic 90–153; BP diastolic 32–73
[2016-11-29 05:11] LABS: HEMATOCRIT 23.6 % (36.0-46.0); MCH 27.3 PG (29.0-34.0); MCHC 33.5 G/DL (30.0-36.0); MCV 81.7 FL (83-99); NRBC (%) 5.9 /100 WBC (0-0); RBC DIS.WIDTH-CV 17.1 % (11.8-14.6); RBC DIS.WIDTH-SD 50.4 % (39-53); RED BLOOD COUNT 2.89 M/uL (3.80-5.20); WHITE BLOOD COUNT 8.3 K/uL (4.1-10.2)
[2016-11-29 05:18] LABS: CHLORIDE 107 mEq/L (99-109); POTASSIUM 4.3 mEq/L (3.7-5.4); SODIUM 139 mEq/L (136-147)
[2016-11-29 05:19] LABS: PROTHROMBIN TIME 42.8 (9.2-11.2); PTT 57.7 (25-32)
[2016-11-29 05:20] LABS: GLUCOSE 78 mg/dL (70-99)
[2016-11-29 05:21] LABS: ANION GAP 17 MEQ/L (2-14)
[2016-11-29 05:23] LABS: GFR ESTIMATE (CALCULATED) > 59 mL/min/; TOTAL BILIRUBIN 4.5 mg/dL (0.0-1.0)
[2016-11-29 05:24] LABS: ALKALINE PHOSPHATASE 245 IU/L (3-129); UREA NITROGEN (BUN) 9 mg/dL (9-23)
[2016-11-29 05:26] LABS: DIRECT BILIRUBIN 2.7 mg/dL (0.0-0.3)
[2016-11-29 07:32] LABS: ABS NEUTROPHIL COUNT 7.6; BAND NEUTROPHILS 3.5 % (0-8.0); BASOPHILS 0.9 %; EOSINOPHIL ABS CT 0; IMM.PLATELET FRACTION 10.3 (1-7); INSTRUMENT ABS NEUTROPHIL CT 7.3 K/uL; LYMPHOCYTES 7.1 % (15.0-45.0); PLAT.SUFFICIENCY DECREASED; SEG.NEUTROPHILS 88.5 % (46.0-76.0); SMUDGE CELLS 4.4
[2016-11-29 07:43] LABS: PLATELET COUNT 46 K/uL (156-360)
[2016-11-29 07:57] LABS: POINT-OF-CARE METER ID UU13113803
[2016-11-29 10:54] LABS: ANION GAP 18 MEQ/L (2-14); CHLORIDE 106 MEQ/L (99-109); GFR ESTIMATE (CALCULATED) > 59 mL/min/; GLUCOSE 91 mg/dL (70-99); POTASSIUM 4.4 MEQ/L (3.7-5.4); SAMPLE HEMOLYSIS CHECK 0; SAMPLE ICTERIC CHECK 1; SAMPLE LIPEMIA CHECK 0; SODIUM 140 MEQ/L (136-147); UREA NITROGEN (BUN) 8 mg/dL (9-23)
[2016-11-29 13:23] LABS: BASE EXCESS -12.5 mEq/L (-3 to +3); BICARBONATE 12.1 mEq/L (22-26); CARBOXY HGB 0.9 % (0-5); DEVICE 980; FI02 50 %; INSPIRATION TIME 0.8 seconds; MECHANICAL RATE 24 resp/min; METHEMOGLOBIN 1.5 % (0-1.5); MODE AC PC; PCO2 23 mm Hg (35-45); PEEP 5 CM/H20; PO2 87 mm Hg (80-100); PRESSURE CONTROL VENTILATION 25 CM H20; SITE ALINE; TOTAL RESP RATE 24 resp/min; pH 7.33 (7.35-7.45)
[2016-11-29 13:41] LABS: POINT-OF-CARE METER ID UU14162636; POINT-OF-CARE USER ID 606021424
[2016-11-29 16:13] LABS: CHLORIDE 106 MEQ/L (99-109); GFR ESTIMATE (CALCULATED) > 59 mL/min/; GLUCOSE 209 mg/dL (70-99); POTASSIUM 4.6 MEQ/L (3.7-5.4); SAMPLE HEMOLYSIS CHECK 0; SAMPLE ICTERIC CHECK 1; SAMPLE LIPEMIA CHECK 0; SODIUM 137 MEQ/L (136-147); UREA NITROGEN (BUN) 11 mg/dL (9-23)
[2016-11-29 16:23] LABS: ANION GAP 20 MEQ/L (2-14)
[2016-11-29 16:27] LABS: BAND NEUTROPHILS 0.9 % (0-8.0); BASOPHILS 0.9 %; EOSINOPHIL ABS CT 0; HEMATOCRIT 23.9 % (36.0-46.0); HEMATOLOGY COMMENT 1 SN; INSTRUMENT ABS NEUTROPHIL CT 10.1 K/uL; LYMPHOCYTES 2.7 % (15.0-45.0); MCH 27.2 PG (29.0-34.0); MCHC 31.8 G/DL (30.0-36.0); NUCLEATED RBC'S 4.5; PLAT.SUFFICIENCY DECREASED; RBC DIS.WIDTH-CV 17.8 % (11.8-14.6); RBC DIS.WIDTH-SD 55.2 % (39-53); RED BLOOD COUNT 2.79 M/uL (3.80-5.20); SEG.NEUTROPHILS 91.1 % (46.0-76.0)
[2016-11-29 16:29] LABS: IMM.PLATELET FRACTION 10.9 (1-7); MCV 85.7 FL (83-99); PLATELET COUNT 48 K/uL (156-360)
== END 2016-11-29 16:46 | DRG 637 ==
LOC: EME 12:09 → EDOF 18:36 → 4WEST 18:36 → 5SOUTH 18:36 → 4WEST 11-24 09:10
PROVIDERS: Emergency Medicine; Hospitalist; Internal Medicine; Internal Medicine Cardiovascular Disease; Internal Medicine Critical Care Medicine; Internal Medicine Hematology & Oncology; Internal Medicine Nephrology; Internal Medicine Pulmonary Disease; Psychiatry & Neurology Neurology; Specialist; Surgery
PROC: 05H633Z Insertion of Infusion Device into Left Subclavian Vein, Percutaneous Approach (ICD-10-PCS; principal; 2016-11-24)
PROC: 30243K1 Transfusion of Nonautologous Frozen Plasma into Central Vein, Percutaneous Approach (ICD-10-PCS; 2016-11-25)
PROC: 5A1D60Z (ICD-10-PCS; 2016-11-25)
PROC: 30243R1 Transfusion of Nonautologous Platelets into Central Vein, Percutaneous Approach (ICD-10-PCS; 2016-11-25)
PROC: 0BH17EZ Insertion of Endotracheal Airway into Trachea, Via Natural or Artificial Opening (ICD-10-PCS; 2016-11-26)
PROC: 02HV33Z Insertion of Infusion Device into Superior Vena Cava, Percutaneous Approach (ICD-10-PCS; 2016-11-26)
PROC: 5A1945Z Respiratory Ventilation, 24-96 Consecutive Hours (ICD-10-PCS; 2016-11-26)
PROC: 03HY32Z Insertion of Monitoring Device into Upper Artery, Percutaneous Approach (ICD-10-PCS; 2016-11-26)
DX: E11.65 Type 2 diabetes mellitus with hyperglycemia (principal); K72.00 Acute and subacute hepatic failure without coma; J96.01 Acute respiratory failure with hypoxia; D65 Disseminated intravascular coagulation [defibrination syndrome]; R57.1 Hypovolemic shock; N17.0 Acute kidney failure with tubular necrosis; R65.21 Severe sepsis with septic shock; A41.9 Sepsis, unspecified organism; G93.40 Encephalopathy, unspecified; J18.9 Pneumonia, unspecified organism; D68.8 Other specified coagulation defects; I95.89 Other hypotension; E11.42 Type 2 diabetes mellitus with diabetic polyneuropathy; Z79.84 Long term (current) use of oral hypoglycemic drugs; I48.0 Paroxysmal atrial fibrillation; Z79.01 Long term (current) use of anticoagulants; I10 Essential (primary) hypertension; E78.5 Hyperlipidemia, unspecified; I25.10 Atherosclerotic heart disease of native coronary artery without angina pectoris; I25.2 Old myocardial infarction; M19.90 Unspecified osteoarthritis, unspecified site; Z95.5 Presence of coronary angioplasty implant and graft; H10.33 Unspecified acute conjunctivitis, bilateral; Z85.42 Personal history of malignant neoplasm of other parts of uterus; Z92.21 Personal history of antineoplastic chemotherapy; E83.52 Hypercalcemia; E86.0 Dehydration; E87.1 Hypo-osmolality and hyponatremia; R05 Cough; J06.9 Acute upper respiratory infection, unspecified; I27.2 Other secondary pulmonary hypertension; E87.2 Acidosis; D69.59 Other secondary thrombocytopenia; R18.8 Other ascites; K80.20 Calculus of gallbladder without cholecystitis without obstruction; R09.02 Hypoxemia; I25.700 Atherosclerosis of coronary artery bypass graft(s), unspecified, with unstable angina pectoris; E87.5 Hyperkalemia; E87.4 Mixed disorder of acid-base balance; I24.8 Other forms of acute ischemic heart disease; E66.9 Obesity, unspecified; Z68.35 Body mass index [BMI] 35.0-35.9, adult; Z66 Do not resuscitate; G25.3 Myoclonus; R40.20 Unspecified coma
CPT/HCPCS: 36600; 36620; 70450; 71010; 74176; 76705; 76770; 78226; 80048; 80048 91; 80053; 80069; 80074; 80076; 80202; 81003; 82248; 82436; 82533 91; 82607; 82746; 82803; 82948; 83036; 83605; 83735; 84100; 84133; 84165; 84300; 84443; 84450; 84460; 84484; 84550; 85025; 85025 91; 85027; 85384; 85610; 85730; 86022 90; 86038; 86900; 86901; 86920; 87040; 87070; 87205; 87493; 87641; 93005; 93306; 94002; 94003; 94640; 94640 76; 94799; 99202; 99281; 99285; A9537; C1752; C1769; C1788; G0480; J0171; J0610; J0692; J1160; J1200; J1205; J1265; J1630; J1644; J1720; J1815; J1940; J1956; J2060; J2248; J2250; J2370; J2405; J2543; J2704; J2997; J3010; J3370; J7030; J7040; J7050; J7070; P9016; P9017; P9035; P9047; S0028; S0030